=== PATIENT | female | born 1970 | race African-American/Black ===

== ENCOUNTER 2018-06-02 15:56 | Emergency (ER) | payer MEDICAID ==
[~2018-06-02] VITALS: Ht 165.1 cm; Wt 75.7 kg
[2018-06-02 16:00] VITALS: BP 131/84
[2018-06-02] MEDS ORDERED: LIDOCAINE VISCOUS 2% 20 ML UDC PO ONE (17:50)
[2018-06-02] MEDS ORDERED: KETOROLAC 30 MG/ML VIAL IM ONE (18:25)
[2018-06-02 18:56] VITALS: BP 131/84
== END 2018-06-02 18:50 | disposition home or self-care (01) ==
LOC: MED 15:56
DX: J02.8 Acute pharyngitis due to other specified organisms (principal); I10 Essential (primary) hypertension; M79.7 Fibromyalgia
CPT/HCPCS: 70360; 87081; 96372; 99285; J1885